=== PATIENT | male | born 1985 | race Caucasian/White ===

== ENCOUNTER 2023-05-29 21:24 | Inpatient (IN) | payer OTHER ==
[2023-05-29 22:00] VITALS: BMI 24.2
[2023-05-29] MEDS ORDERED: NALOXONE HCL (KLOXXADO) 8 MG SPRAY NS PRN (22:23)
[2023-05-29] MEDS ORDERED: BISMUTH SUBSALICYLATE 524 MG/30 ML PO PRN (22:23)
[2023-05-29] MEDS ORDERED: BENZOCAINE/MENTHOL (CHLORASEPTIC ) LOZENGE MM PRN (22:23)
[2023-05-29] MEDS ORDERED: ACETAMINOPHEN 325 MG TABLET (FP) PO PRN (22:23)
[2023-05-29] MEDS ORDERED: guaiFENesin 600 MG TABLET.ER (FP) PO PRN (22:23)
[2023-05-29] MEDS ORDERED: NALOXONE HCL 0.4 MG/ML VIAL IM PRN (22:23)
[2023-05-29] MEDS ORDERED: MAG HYDROX/AL HYDROX/SIMETH 30 ML UNIT-DOSE CUP PO PRN (22:23)
[2023-05-29] MEDS ORDERED: MAGNESIUM HYDROX 2400MG/30ML ORAL SUSPENSION 30 ML CUP PO PRN (22:23)
[2023-05-29] MEDS ORDERED: POLYETHYLENE GLYCOL (HEALTHYLAX) 3350 17 GM PACKET PO PRN (22:23)
[2023-05-29] MEDS ORDERED: hydrOXYzine PAMOATE 25 MG CAPSULE (FP) PO PRN (22:23)
[2023-05-29] MEDS ORDERED: ONDANSETRON *ODT* 4 MG TABLET SL PRN (22:23)
[2023-05-29] MEDS ORDERED: IBUPROFEN 400 MG TABLET (FP) PO PRN (22:23)
[2023-05-29] MEDS ORDERED: NICOTINE POLACRILEX 4 MG GUM BUC PRN (22:23)
[2023-05-29] MEDS ORDERED: METHOCARBAMOL 500 MG TABLET PO PRN (22:23)
[2023-05-29] MEDS ORDERED: IBUPROFEN 600 MG TABLET (FP) PO PRN (22:23)
[2023-05-29] MEDS ORDERED: BENZONATATE 200 MG CAPSULE PO PRN (22:23)
[2023-05-29] MEDS ORDERED: LOPERAMIDE HCL 2 MG CAPSULE PO PRN (22:23)
[2023-05-29] MEDS ORDERED: chlordiazePOXIDE HCL 25 MG CAPSULE PO PRN (22:23)
[2023-05-29] MEDS ORDERED: DICYCLOMINE HCL 10 MG CAPSULE PO PRN (22:23)
[2023-05-29] MEDS ORDERED: chlordiazePOXIDE HCL 25 MG CAPSULE ONE (22:58)
[2023-05-29] MEDS: chlordiazePOXIDE HCL 25 MG CAPSULE PO SCH (23:02)
[2023-05-30] MEDS: chlordiazePOXIDE HCL 25 MG CAPSULE PO SCH ×5 (06:00→22:48)
[2023-05-30] MEDS: NICOTINE 21 MG/24 HOURS TOPICAL PATCH TD SCH (10:20)
[2023-05-30] MEDS: PRENATAL VITAMINS W/ FOLIC ACID TABLET (FP) PO SCH (10:20)
[2023-05-30 16:05] LABS: HEMOGLOBIN 12.9 GM/dL (11.7-16.9); MCHC 33.9 g/dl (32.0-35.9); MEAN CELL VOLUME 88.5 fl (80-96); MEAN PLT VOLUME 8.6 fl (7.5-11.1); PLATELET COUNT 259 10^3/uL (134-434); RDW 14.6 % (11.9-15.9)
[2023-05-30 16:06] LABS: POTASSIUM 4.1 mmol/L (3.5-5.1)
[2023-05-30 16:09] LABS: CALCIUM 8.4 mg/dL (8.5-10.1)
[2023-05-30 16:10] LABS: ALBUMIN 2.9 g/dl (3.4-5.0); BLOOD UREA NITROGEN 11.2 mg/dL (7-18)
[2023-05-30 16:13] LABS: CREATININE 0.7 mg/dL (0.55-1.3)
[2023-05-30 16:15] LABS: BILIRUBIN,TOTAL 0.2 mg/dL (0.2-1); TOT PROT 7.4 g/dl (6.4-8.2)
[2023-05-30] MEDS: THIAMINE HCL 100 MG TABLET (FP) PO SCH (22:48)
[2023-05-30] MEDS: MELATONIN 5 MG TABLETS PO SCH (22:48)
[2023-05-31] MEDS: chlordiazePOXIDE HCL 25 MG CAPSULE PO SCH ×4 (06:00→22:18)
[2023-05-31] MEDS: PRENATAL VITAMINS W/ FOLIC ACID TABLET (FP) PO SCH (10:15)
[2023-05-31] MEDS: NICOTINE 21 MG/24 HOURS TOPICAL PATCH TD SCH (10:15)
[2023-05-31] MEDS: MELATONIN 5 MG TABLETS PO SCH (22:18)
[2023-05-31] MEDS: THIAMINE HCL 100 MG TABLET (FP) PO SCH (22:18)
[2023-06-01] MEDS ORDERED: chlordiazePOXIDE HCL 10 MG CAPSULE PO PRN
[2023-06-01] MEDS: chlordiazePOXIDE HCL 10 MG CAPSULE PO SCH ×4 (05:43→22:08)
[2023-06-01] MEDS: NICOTINE 21 MG/24 HOURS TOPICAL PATCH TD SCH (10:04)
[2023-06-01] MEDS: PRENATAL VITAMINS W/ FOLIC ACID TABLET (FP) PO SCH (10:04)
[2023-06-01] MEDS: THIAMINE HCL 100 MG TABLET (FP) PO SCH (22:08)
[2023-06-01] MEDS: MELATONIN 5 MG TABLETS PO SCH (22:08)
[2023-06-02] MEDS: chlordiazePOXIDE HCL 10 MG CAPSULE PO SCH ×2 (05:41→17:25)
[2023-06-02] MEDS: NICOTINE 21 MG/24 HOURS TOPICAL PATCH TD SCH (10:10)
[2023-06-02] MEDS: PRENATAL VITAMINS W/ FOLIC ACID TABLET (FP) PO SCH (10:11)
[2023-06-02] MEDS: BICTEGRAV/EMTRICIT/TENOFOV (BIKTARVY) 50-200-25 MG TABLET PO SCH (11:42)
[2023-06-02] MEDS: THIAMINE HCL 100 MG TABLET (FP) PO SCH (22:26)
[2023-06-02] MEDS: MELATONIN 5 MG TABLETS PO SCH (22:26)
[2023-06-03] MEDS ORDERED: chlordiazePOXIDE HCL 10 MG CAPSULE PO ONE (05:00)
[2023-06-03 06:37] VITALS: BP 100/60; PULSE 66; RESP 17; TEMP 97.8
[2023-06-03] MEDS: BICTEGRAV/EMTRICIT/TENOFOV (BIKTARVY) 50-200-25 MG TABLET PO SCH (07:17)
== END 2023-06-03 09:22 | disposition home or self-care (01) | DRG 774 ==
LOC: YASAS 21:24 → Y3N 23:12
PROVIDERS: ADMIT Allergy & Immunology; ATTEND Allergy & Immunology
PROC: HZ2ZZZZ Detoxification Services for Substance Abuse Treatment (ICD-10-PCS; principal; 2023-05-29)
DX: F10.230 Alcohol dependence with withdrawal, uncomplicated (principal); F14.20 Cocaine dependence, uncomplicated; F17.210 Nicotine dependence, cigarettes, uncomplicated; F31.9 Bipolar disorder, unspecified; F20.9 Schizophrenia, unspecified; F19.24 Other psychoactive substance dependence with psychoactive substance-induced mood disorder; Z28.310 Unvaccinated for COVID-19; Z28.9 Immunization not carried out for unspecified reason; Z88.0 Allergy status to penicillin
CPT/HCPCS: 36415; 80053; 85027; 86780; 87635; 87811; 93005; 93010

== ENCOUNTER 2023-12-25 13:03 | Inpatient (IN) | payer OTHER ==
[2023-12-25 13:56] VITALS: BMI 22.8
[2023-12-25] MEDS ORDERED: P-EPHED 60MG/TRIPROLIDI 2.5MG TABLET PO PRN (17:34)
[2023-12-25] MEDS ORDERED: ACETAMINOPHEN 325 MG TABLET (FP) PO PRN (17:34)
[2023-12-25] MEDS ORDERED: guaiFENesin 600 MG TABLET.ER (FP) PO PRN (17:34)
[2023-12-25] MEDS ORDERED: IBUPROFEN 400 MG TABLET (FP) PO PRN (17:34)
[2023-12-25] MEDS ORDERED: MAG HYDROX/AL HYDROX/SIMETH 30 ML UNIT-DOSE CUP PO PRN (17:34)
[2023-12-25] MEDS ORDERED: BENZONATATE 200 MG CAPSULE PO PRN (17:34)
[2023-12-25] MEDS ORDERED: LOPERAMIDE HCL 2 MG CAPSULE PO PRN (17:34)
[2023-12-25] MEDS ORDERED: MAGNESIUM HYDROX 2400MG/30ML ORAL SUSPENSION 30 ML CUP PO PRN (17:34)
[2023-12-25] MEDS ORDERED: BENZOCAINE/MENTHOL (CHLORASEPTIC ) LOZENGE MM PRN (17:34)
[2023-12-25] MEDS ORDERED: POLYETHYLENE GLYCOL (HEALTHYLAX) 3350 17 GM PACKET PO PRN (17:34)
[2023-12-25] MEDS: MELATONIN 5 MG TABLETS PO SCH (22:28)
[2023-12-25] MEDS: THIAMINE HCL 100 MG TABLET (FP) PO SCH (22:29)
[2023-12-26] MEDS: PRENATAL VITAMINS W/ FOLIC ACID TABLET (FP) PO SCH (10:42)
[2023-12-26 11:01] LABS: HEMATOCRIT 38.6 % (35.4-49); HEMOGLOBIN 12.6 GM/dL (11.7-16.9); MCH 29.2 pg (25.7-33.7); MCHC 32.7 g/dl (32.0-35.9); MEAN CELL VOLUME 89.4 fl (80-96); MEAN PLT VOLUME 8.6 fl (7.5-11.1); PLATELET COUNT 328 10^3/uL (134-434); RBC 4.32 M/mm3 (4.00-5.60); RDW 14.9 % (11.9-15.9)
[2023-12-26 11:06] LABS: POTASSIUM 3.7 mmol/L (3.5-5.1)
[2023-12-26 11:16] LABS: CALCIUM 8.4 mg/dL (8.5-10.1)
[2023-12-26 11:17] LABS: ALBUMIN 2.8 g/dl (3.4-5.0); BLOOD UREA NITROGEN 13.1 mg/dL (7-18)
[2023-12-26 11:20] LABS: CREATININE 0.8 mg/dL (0.55-1.3)
[2023-12-26 11:21] LABS: TOT PROT 7.1 g/dl (6.4-8.2)
[2023-12-26 11:22] LABS: BILIRUBIN,TOTAL 0.5 mg/dL (0.2-1)
[2023-12-27] MEDS: hydrOXYzine PAMOATE 25 MG CAPSULE (FP) PO PRN (11:37)
[2023-12-27] MEDS ORDERED: NICOTINE POLACRILEX 4 MG GUM BUC PRN (11:44)
[2023-12-27] MEDS ORDERED: NICOTINE 21 MG/24 HOURS TOPICAL PATCH TD PRN (11:44)
[2023-12-28] MEDS: BICTEGRAV/EMTRICIT/TENOFOV (BIKTARVY) 50-200-25 MG TABLET PO SCH (09:02)
[2023-12-28] MEDS: QUEtiapine FUMARATE 100 MG TABLET (FP) PO SCH (21:33)
[2023-12-29] MEDS ORDERED: BUPRENORPHINE HCL 150 MCG, BUPRENORPHINE HCL 75 MCG BC PRN (14:09)
[2023-12-29] MEDS: BUPRENORPHINE HCL 150 MCG, BUPRENORPHINE HCL 75 MCG BC ONE (14:49)
[2023-12-29] MEDS: BACLOFEN 10 MG TABLET (FP) PO SCH (15:00)
[2023-12-29] MEDS: cloNIDine HCL 0.1 MG TABLET PO ONE (15:00)
[2023-12-29 16:15] LABS: PH,URINE 7.5 (5.0-8.0); URINE APPEARANCE CLEAR; URINE BILIRUBIN NEGATIVE (NEGATIVE); URINE COLOR DK YELLOW; URINE GLUCOSE (UA) NEGATIVE (NEGATIVE); URINE KETONE NEGATIVE (NEGATIVE); URINE LEUK ESTERASE NEGATIVE (NEGATIVE); URINE NITRITE NEGATIVE (NEGATIVE); URINE PROTEIN NEGATIVE (NEGATIVE); URINE UROBILINOGEN 0.2 mg/dL (0.2-1.0)
[2023-12-29] MEDS: cloNIDine HCL 0.1 MG TABLET PO PRN (21:04)
[2023-12-30] MEDS ORDERED: BUPRENORPHINE HCL 150 MCG, BUPRENORPHINE HCL 75 MCG BC PRN
[2023-12-30] MEDS ORDERED: BUPRENORPHINE HCL 150 MCG, BUPRENORPHINE HCL 75 MCG BC SCH (06:00)
[2023-12-31] MEDS ORDERED: BUPRENORPHINE HCL 450 MCG FILM BC SCH (06:00)
[2024-01-01] MEDS: IBUPROFEN 600 MG TABLET (FP) PO PRN (08:54)
[2024-01-02 06:48] VITALS: RESP 18
[2024-01-04 06:24] VITALS: TEMP 97.1
[2024-01-04 09:01] VITALS: BP 117/76; PULSE 92
== END 2024-01-04 10:29 | disposition home or self-care (01) | DRG 772 ==
LOC: YASAS 13:03 → Y3NR 17:22 → Y3E 12-27 11:16 → Y3W 12-28 12:27
PROVIDERS: ADMIT Allergy & Immunology; ATTEND Psychiatry & Neurology Pain Medicine
PROC: HZ42ZZZ Group Counseling for Substance Abuse Treatment, Cognitive-Behavioral (ICD-10-PCS; principal; 2023-12-25)
DX: F10.20 Alcohol dependence, uncomplicated (principal); F14.20 Cocaine dependence, uncomplicated; F17.210 Nicotine dependence, cigarettes, uncomplicated; F31.9 Bipolar disorder, unspecified; F25.9 Schizoaffective disorder, unspecified; F19.282 Other psychoactive substance dependence with psychoactive substance-induced sleep disorder; F19.24 Other psychoactive substance dependence with psychoactive substance-induced mood disorder; F39 Unspecified mood [affective] disorder; B20 Human immunodeficiency virus [HIV] disease; Z79.899 Other long term (current) drug therapy; Z88.0 Allergy status to penicillin
CPT/HCPCS: 0241U-QW; 36415; 80053; 80305; 81003; 85027; 86780; J0475

== ENCOUNTER 2025-03-18 10:25 | Inpatient (IN) | payer OTHER ==
[2025-03-18 10:49] VITALS: BMI 22.9
[2025-03-18] MEDS ORDERED: LOPERAMIDE HCL 2 MG CAPSULE PO PRN (11:01)
[2025-03-18] MEDS ORDERED: POLYETHYLENE GLYCOL (HEALTHYLAX) 3350 17 GM PACKET PO PRN (11:01)
[2025-03-18] MEDS ORDERED: NALOXONE (NARCAN) HCL 4 MG/0.1 ML SPRAY NS PRN (11:01)
[2025-03-18] MEDS ORDERED: BENZONATATE 200 MG CAPSULE PO PRN (11:01)
[2025-03-18] MEDS ORDERED: NICOTINE POLACRILEX 2 MG LOZENGE BC PRN (11:01)
[2025-03-18] MEDS ORDERED: guaiFENesin 600 MG TABLET.ER (FP) PO PRN (11:01)
[2025-03-18] MEDS ORDERED: IBUPROFEN 600 MG TABLET (FP) PO PRN (11:01)
[2025-03-18] MEDS ORDERED: MAGNESIUM HYDROX 2400MG/30ML ORAL SUSPENSION 30 ML CUP PO PRN (11:01)
[2025-03-18] MEDS ORDERED: BENZOCAINE/MENTHOL (CHLORASEPTIC ) LOZENGE MM PRN (11:01)
[2025-03-18] MEDS ORDERED: IBUPROFEN 400 MG TABLET (FP) PO PRN (11:01)
[2025-03-18] MEDS ORDERED: MAG HYDROX/AL HYDROX/SIMETH 30 ML UNIT-DOSE CUP PO PRN (11:01)
[2025-03-18] MEDS: MELATONIN 5 MG TABLETS PO SCH (21:31)
[2025-03-18] MEDS: THIAMINE 100 MG TABLET PO SCH (21:31)
[2025-03-19 11:00] LABS: HEMATOCRIT 35.1 % (40.1-51.0); HEMOGLOBIN 11.7 g/dL (13.7-17.5); MCHC 33.3 g/dl (32.3-36.5); MEAN CELL VOLUME 85.6 fl (79.0-92.2); MEAN PLT VOLUME 9.7 fl (9.4-12.4); PLATELET COUNT 87 x10^3/uL (163-337); RDW 12.6 % (12.0-15.6)
[2025-03-19 11:06] LABS: CHLORIDE 95 mmol/L (98-107); POTASSIUM 3.1 mmol/L (3.5-5.1); SODIUM 134 mmol/L (136-145)
[2025-03-19] MEDS: PRENATAL VITAMINS W/ FOLIC ACID TABLET (FP) PO SCH (11:11)
[2025-03-19 11:13] LABS: ALBUMIN 2.3 g/dl (3.4-5.0); ANION GAP 9 mmol/L (4-13); BLOOD UREA NITROGEN 30.8 mg/dL (7-18); CO2 30 mmol/L (21-32); GLUCOSE,RANDOM 104 mg/dL (74-106)
[2025-03-19] MEDS ORDERED: BENZOCAINE/MENTHOL (CHLORASEPTIC ) LOZENGE MM PRN (11:14)
[2025-03-19] MEDS ORDERED: DICYCLOMINE HCL 10 MG CAPSULE PO PRN (11:14)
[2025-03-19] MEDS ORDERED: BISMUTH SUBSALICYLATE 262 MG/15 ML BTL PO PRN (11:14)
[2025-03-19 11:16] LABS: CREATININE 1.2 mg/dL (0.55-1.3); SGOT/AST 217 U/L (15-37); SGPT/ALT 159 U/L (13-61)
[2025-03-19 11:18] LABS: TOT PROT 6.9 g/dl (6.4-8.2)
[2025-03-19 11:19] LABS: ALK PHOS 127 U/L (45-117)
[2025-03-19] MEDS: LORazepam 0.5 MG TABLET PO SCH (11:47)
[2025-03-19] MEDS: ONDANSETRON *ODT* 4 MG TABLET SL PRN (11:47)
[2025-03-19] MEDS: SODIUM CHLORIDE 1 GM TABLET PO SCH ×2 (12:29→13:20)
[2025-03-19] MEDS: POTASSIUM CHLORIDE TABS 20 MEQ TABLET.ER (FP) PO SCH (12:53)
[2025-03-19] MEDS: ACETAMINOPHEN 325 MG TABLET (FP) PO PRN (15:19)
[2025-03-19] MEDS ORDERED: QUEtiapine FUMARATE 100 MG TABLET (FP) PO SCH (22:00)
[2025-03-19] MEDS: QUEtiapine FUMARATE 50 MG TABLET PO SCH (22:01)
[2025-03-20] MEDS: FAMOTIDINE 20 MG TABLET PO SCH (11:26)
[2025-03-20] MEDS: LORazepam 0.5 MG TABLET PO PRN (11:26)
[2025-03-20 11:39] LABS: INR 1.12 (0.83-1.09); PROTHROMBIN TIME (PATIENT) 12.2 SEC (9.7-13.0)
[2025-03-20 11:48] LABS: MAGNESIUM 1.4 mg/dL (1.8-2.4)
[2025-03-20 13:30] LABS: POTASSIUM 3.6 mmol/L (3.5-5.1)
[2025-03-20 13:33] LABS: ALBUMIN 2.1 g/dl (3.4-5.0); BLOOD UREA NITROGEN 24.1 mg/dL (7-18)
[2025-03-20 13:37] LABS: CREATININE 1.1 mg/dL (0.55-1.3)
[2025-03-20 13:38] LABS: BILIRUBIN,TOTAL 0.7 mg/dL (0.2-1); TOT PROT 6.4 g/dl (6.4-8.2)
[2025-03-20] MEDS: MAGNESIUM OXIDE 400 MG TABLET (FP) PO SCH (14:41)
[2025-03-20] MEDS: SODIUM CHLORIDE 1 GM TABLET PO SCH (14:41)
[2025-03-20] MEDS ORDERED: LORazepam 0.5 MG TABLET PO PRN (16:11)
[2025-03-21] MEDS: LORazepam 0.5 MG TABLET PO ONE (06:00)
[2025-03-21] MEDS ORDERED: LORazepam 0.5 MG TABLET PO PRN ×2 (08:37)
[2025-03-21 11:25] LABS: PH,URINE >= 9.0 (5.0-8.0); URINE APPEARANCE CLOUDY; URINE BILIRUBIN NEGATIVE (NEGATIVE); URINE COLOR YELLOW; URINE GLUCOSE (UA) NEGATIVE (NEGATIVE); URINE KETONE NEGATIVE (NEGATIVE); URINE LEUK ESTERASE NEGATIVE (NEGATIVE); URINE NITRITE NEGATIVE (NEGATIVE); URINE PROTEIN TRACE (NEGATIVE)
[2025-03-21 11:29] LABS: HEMATOCRIT 36.2 % (40.1-51.0); HEMOGLOBIN 11.8 g/dL (13.7-17.5); MCHC 32.6 g/dl (32.3-36.5); MEAN CELL VOLUME 86.6 fl (79.0-92.2); MEAN PLT VOLUME 9.2 fl (9.4-12.4); PLATELET COUNT 160 x10^3/uL (163-337); RDW 12.5 % (12.0-15.6)
[2025-03-21 11:34] LABS: POTASSIUM 4.1 mmol/L (3.5-5.1)
[2025-03-21 11:38] LABS: CALCIUM 8.2 mg/dL (8.5-10.1)
[2025-03-21 11:39] LABS: ALBUMIN 2.2 g/dl (3.4-5.0); BLOOD UREA NITROGEN 17.8 mg/dL (7-18)
[2025-03-21 11:43] LABS: BILIRUBIN,TOTAL 0.8 mg/dL (0.2-1); TOT PROT 6.9 g/dl (6.4-8.2)
[2025-03-22] MEDS: METHOCARBAMOL 500 MG TABLET PO PRN (09:27)
[2025-03-22] MEDS: hydrOXYzine PAMOATE 25 MG CAPSULE (FP) PO PRN (09:27)
[2025-03-22] MEDS: LACTULOSE 20 GM/30 ML UDC (FOR ORAL USE ONLY) PO SCH (13:54)
[2025-03-22] MEDS: diazePAM 5 MG TABLET PO PRN (21:20)
[2025-03-23 11:19] LABS: HEMATOCRIT 34.6 % (40.1-51.0); HEMOGLOBIN 11.3 g/dL (13.7-17.5); MCHC 32.7 g/dl (32.3-36.5); MEAN CELL VOLUME 86.9 fl (79.0-92.2); MEAN PLT VOLUME 11.3 fl (9.4-12.4); PLATELET COUNT 191 x10^3/uL (163-337); RDW 12.5 % (12.0-15.6)
[2025-03-23 11:28] LABS: POTASSIUM 4.3 mmol/L (3.5-5.1)
[2025-03-23 11:48] LABS: CALCIUM 8.2 mg/dL (8.5-10.1)
[2025-03-23 11:50] LABS: ALBUMIN 2.2 g/dl (3.4-5.0); BLOOD UREA NITROGEN 18.3 mg/dL (7-18); MAGNESIUM 1.3 mg/dL (1.8-2.4)
[2025-03-23 11:52] LABS: CREATININE 0.9 mg/dL (0.55-1.3)
[2025-03-23 11:53] LABS: BILIRUBIN,TOTAL 0.7 mg/dL (0.2-1)
[2025-03-23 12:17] LABS: TOT PROT 6.7 g/dl (6.4-8.2)
[2025-03-23 18:40] VITALS: BP 112/68; PULSE 98; RESP 16; TEMP 97.6
[2025-03-23] MEDS ORDERED: LACTULOSE 20 GM/30 ML UDC (FOR ORAL USE ONLY) PO PRN (18:42)
[2025-03-23] MEDS: BICTEGRAV/EMTRICIT/TENOFOV (BIKTARVY) 50-200-25 MG TABLET PO SCH (19:12)
[2025-03-23] MEDS: SODIUM CHLORIDE 1 GM TABLET PO SCH (20:04)
[2025-03-23] MEDS ORDERED: SODIUM CHLORIDE 1 GM TABLET PO SCH (22:00)
== END 2025-03-24 15:55 | disposition short-term general hospital (02) | DRG 772 ==
LOC: YASAS 10:25 → Y3NR 11:26 → Y3W 03-19 09:11
PROVIDERS: ADMIT Psychiatry & Neurology Pain Medicine; ATTEND Psychiatry & Neurology Pain Medicine
PROC: HZ42ZZZ Group Counseling for Substance Abuse Treatment, Cognitive-Behavioral (ICD-10-PCS; principal; 2025-03-18)
DX: F14.20 Cocaine dependence, uncomplicated (principal); F10.20 Alcohol dependence, uncomplicated; F17.210 Nicotine dependence, cigarettes, uncomplicated; F31.9 Bipolar disorder, unspecified; F20.9 Schizophrenia, unspecified; F39 Unspecified mood [affective] disorder; Z21 Asymptomatic human immunodeficiency virus [HIV] infection status; E72.20 Disorder of urea cycle metabolism, unspecified; E87.1 Hypo-osmolality and hyponatremia; E87.6 Hypokalemia; R62.7 Adult failure to thrive; Z68.23 Body mass index [BMI] 23.0-23.9, adult; K21.9 Gastro-esophageal reflux disease without esophagitis; Z79.899 Other long term (current) drug therapy; Z88.0 Allergy status to penicillin
CPT/HCPCS: 36415; 80053; 80305; 80307; 81003; 82140; 83735; 85027; 85610; 86780; 87811; 93005; 93010; Q0162

== ENCOUNTER 2025-03-26 17:10 | Inpatient (IN) | payer OTHER ==
[2025-03-26] MEDS ORDERED: hydrOXYzine PAMOATE 25 MG CAPSULE (FP) PO PRN (17:24)
[2025-03-26] MEDS ORDERED: MAGNESIUM HYDROX 2400MG/30ML ORAL SUSPENSION 30 ML CUP PO PRN (17:24)
[2025-03-26] MEDS ORDERED: NICOTINE POLACRILEX 2 MG GUM BUC PRN (17:24)
[2025-03-26] MEDS ORDERED: ACETAMINOPHEN 325 MG TABLET (FP) PO PRN (17:24)
[2025-03-26] MEDS ORDERED: LOPERAMIDE HCL 2 MG CAPSULE PO PRN (17:24)
[2025-03-26] MEDS ORDERED: MAG HYDROX/AL HYDROX/SIMETH 30 ML UNIT-DOSE CUP PO PRN (17:24)
[2025-03-26] MEDS ORDERED: IBUPROFEN 400 MG TABLET (FP) PO PRN (17:24)
[2025-03-26] MEDS ORDERED: guaiFENesin 600 MG TABLET.ER (FP) PO PRN (17:24)
[2025-03-26] MEDS ORDERED: POLYETHYLENE GLYCOL (HEALTHYLAX) 3350 17 GM PACKET PO PRN (17:24)
[2025-03-26] MEDS ORDERED: NALOXONE (NARCAN) HCL 4 MG/0.1 ML SPRAY NS PRN (17:24)
[2025-03-26] MEDS ORDERED: BENZONATATE 200 MG CAPSULE PO PRN (17:24)
[2025-03-26] MEDS ORDERED: BENZOCAINE/MENTHOL (CHLORASEPTIC ) LOZENGE MM PRN (17:24)
[2025-03-26 18:41] VITALS: BMI 21.6
[2025-03-26] MEDS: NALTREXONE HCL 50 MG TABLET PO ONE (19:25)
[2025-03-26] MEDS: MELATONIN 5 MG TABLETS PO SCH (21:22)
[2025-03-26] MEDS: THIAMINE 100 MG TABLET PO SCH (21:22)
[2025-03-26] MEDS: CEFUROXIME AXETIL 500 MG TABLET PO SCH (21:22)
[2025-03-27] MEDS: BICTEGRAV/EMTRICIT/TENOFOV (BIKTARVY) 50-200-25 MG TABLET PO SCH (07:01)
[2025-03-27] MEDS: NALTREXONE HCL 50 MG TABLET PO SCH (10:05)
[2025-03-27] MEDS: SODIUM CHLORIDE 1 GM TABLET PO SCH (10:05)
[2025-03-27] MEDS: PRENATAL VITAMINS W/ FOLIC ACID TABLET (FP) PO SCH (10:05)
[2025-03-27 15:42] LABS: URINE APPEARANCE CLEAR; URINE BILIRUBIN NEGATIVE (NEGATIVE); URINE COLOR YELLOW; URINE GLUCOSE (UA) NEGATIVE (NEGATIVE); URINE KETONE NEGATIVE (NEGATIVE); URINE LEUK ESTERASE NEGATIVE (NEGATIVE); URINE NITRITE NEGATIVE (NEGATIVE); URINE PROTEIN NEGATIVE (NEGATIVE); URINE UROBILINOGEN 0.2 mg/dL (0.2-1.0)
[2025-03-27 15:49] LABS: MCHC 31.7 g/dl (32.3-36.5); MEAN CELL VOLUME 89.0 fl (79.0-92.2); MEAN PLT VOLUME 11.2 fl (9.4-12.4); RDW 13.3 % (12.0-15.6)
[2025-03-27 16:04] LABS: CO2 28 mmol/L (21-32); GLUCOSE,RANDOM 106 mg/dL (74-106)
[2025-03-27 16:07] LABS: CREATININE 0.6 mg/dL (0.55-1.3); SGOT/AST 36 U/L (15-37); SGPT/ALT 47 U/L (13-61)
[2025-03-27 16:08] LABS: TOT PROT 5.9 g/dl (6.4-8.2)
[2025-03-27 16:10] LABS: ALK PHOS 96 U/L (45-117)
[2025-03-27 16:33] LABS: SYPHILIS W/ RPR CONF NON-REACTIVE (NONREACTIVE)
[2025-03-27 17:03] LABS: HCV DIAGNOSTIC IN-HOUSE W/RFLX NON-REACTIVE (NONREACTIVE)
[2025-04-03] MEDS: IBUPROFEN 600 MG TABLET (FP) PO PRN (17:02)
[2025-04-08] MEDS: NALTREXONE MICROSPHERES (VIVITROL) 380 MG DISP.SYRIN IM ONE (10:24)
[2025-04-08] MEDS: NALTREXONE HCL 50 MG TABLET PO ONE (11:54)
[2025-04-09] MEDS: NALTREXONE HCL 50 MG TABLET PO SCH (11:22)
[2025-04-16] MEDS ORDERED: NICOTINE POLACRILEX 4 MG GUM BUC PRN (13:32)
[2025-04-19 06:26] VITALS: RESP 16; TEMP 97.1
[2025-04-19 08:49] VITALS: BP 130/76; PULSE 96
[2025-04-22] MEDS ORDERED: NALTREXONE MICROSPHERES (VIVITROL) 380 MG DISP.SYRIN IM ONE (10:00)
== END 2025-04-19 12:30 | disposition home or self-care (01) | DRG 772 ==
LOC: YASAS 17:10 → Y3W 18:46
PROVIDERS: ADMIT Psychiatry & Neurology Pain Medicine; ATTEND Psychiatry & Neurology Pain Medicine
PROC: HZ42ZZZ Group Counseling for Substance Abuse Treatment, Cognitive-Behavioral (ICD-10-PCS; principal; 2025-03-26)
DX: F14.20 Cocaine dependence, uncomplicated (principal); F10.20 Alcohol dependence, uncomplicated; F17.210 Nicotine dependence, cigarettes, uncomplicated; F31.9 Bipolar disorder, unspecified; F20.9 Schizophrenia, unspecified; F18.24 Inhalant dependence with inhalant-induced mood disorder; F19.282 Other psychoactive substance dependence with psychoactive substance-induced sleep disorder; Z21 Asymptomatic human immunodeficiency virus [HIV] infection status; E87.1 Hypo-osmolality and hyponatremia; Z87.01 Personal history of pneumonia (recurrent); R79.89 Other specified abnormal findings of blood chemistry; Z59.02 Unsheltered homelessness; Z88.0 Allergy status to penicillin; E87.8 Other disorders of electrolyte and fluid balance, not elsewhere classified
CPT/HCPCS: 36415; 80053; 80307; 81003; 85027; 86780; 86803